=== PATIENT | female | born 1950 | race Caucasian/White ===

== ENCOUNTER → 2022-02-07 | Outpatient (CLI) | payer MEDICARE ==
--- NOTE | 2022-02-07 18:07 | MR ---
EXAMINATION TYPE: MR shoulder RT wo con DATE OF EXAM: 02/07/2022 COMPARISON: Outside right shoulder x-ray January 30, 2022. HISTORY: Rt shoulder pain into arm around 2 months with difficulty raising arm overhead. TECHNIQUE: Multiplanar, multisequence imaging of the right shoulder is performed without contrast. FINDINGS: Rotator Cuff: Marked increased signal in the distal supraspinatus tendon and to lesser degree the dis manuel infraspinatus tendon. Fanning of fibers distal supraspinatus tendon. Subscapularis tendon has so me increased signal and surrounding fluid. Rotator cuff muscle bulk preserved. Acromioclavicular Joint: Moderate to severe spurring. Moderate capsular hypertrophy with joint fluid and adjacent surrounding edema. Subchondral cystic change in the distal clavicle and adjacent acromio n. Glenohumeral Joint: Moderate to large size joint effusion. No significant spurring. Subchondral cysti c change superior osseous glenoid. Moderate narrowing especially inferiorly is felt present. Labrum: Increased signal superior labrum consistent with tear. Biceps Tendon: The long head of biceps is parched along the inner aspect of the bicipital groove. The intracapsular portion not well seen. Bone marrow signal: A few tiny subchondral cysts in the humeral head. Other: No additional significant abnormality is appreciated. IMPRESSION: 1. Significant tendinopathy of the supraspinatus tendon. Mild tendinosis distal infraspinatus tendon. Tendinosis of the subscapularis tendon. 2. Subluxation or trapping long head of biceps tendon. 3. Moderate to severe degenerative changes as detailed above. Moderate to large sized glenohumeral dale int effusion is noted.
== END | disposition home or self-care (01) ==
LOC: RADMRIMAIN 07:51
PROVIDERS: ATTEND Orthopaedic Surgery
DX: M19.011 Primary osteoarthritis, right shoulder (principal); M67.813 Other specified disorders of tendon, right shoulder

== ENCOUNTER 2022-05-10 05:35 | Day surgery (SDC) | payer MEDICARE ==
--- NOTE | 2022-05-09 19:49 | HP ---
HISTORY AND PHYSICAL DATE OF SURGERY: 05/10/2022 HISTORY OF PRESENT ILLNESS: Fe Sahu is a 71-year-old patient seen with progressive right shoulder pain. We discussed options regarding treatment, she elected to proceed with right shoulder arthroscopy. Consent was obtained. Medical clearance was provided by Dr. Back. PAST MEDICAL HISTORY: Atrial fibrillation, hypertension. PAST SURGICAL HISTORY: Tonsillectomy, herniorrhaphy, hysterectomy, cardiac ablation, lithotripsy. DAILY MEDICATIONS: 1. Metoprolol. 2. Xarelto. ALLERGIES: None. SOCIAL HISTORY: She denies tobacco use. PHYSICAL EVALUATION OF THE RIGHT SHOULDER: Flexion is 140 degrees, abduction 120 degrees, external rotation 70 degrees with weakness. Tenderness along the anterolateral acromion and rotator cuff insertion. Impingement is positive at 90 degrees. Drop-arm sign is positive. Distal neurovascular exam is intact. RADIOGRAPHS: Radiographs of the right shoulder revealed osteoarthritic change about the acromioclavicular joint. Significant tendinosis and subluxation of the biceps tendon. IMPRESSION: 1. Right shoulder impingement with rotator cuff tendinitis and possible tear. 2. Right shoulder acromioclavicular joint osteoarthritis. 3. Right shoulder labral tear. 4. Hypertension. 5. Atrial fibrillation. PLAN: Right shoulder arthroscopy, subacromial decompression, Bud procedure, biceps tenotomy, possible rotator cuff repair. MMODL / IJN: [id number] /
[~2022-05-10 05:35] MED LIST: ceFAZolin 3 GM in SODIUM CHLORIDE 0.9% 100 ML IVPB PRN
[2022-05-10] MEDS ORDERED: MIDAZOLAM 2 MG/2 ML VIAL IV PRN (06:13)
[2022-05-10] MEDS ORDERED: LACTATED RINGERS 1,000 ML IV SCH (06:13)
[2022-05-10] MEDS ORDERED: ONDANSETRON 4 MG/2 ML VIAL IVP ONE (06:13)
[2022-05-10] MEDS ORDERED: DEXAMETHASONE SOD PHOSPHATE 4 MG/ML 1 ML VIAL IV ONE (06:13)
[2022-05-10] MEDS ORDERED: HYDROmorphone 0.5 MG/0.5 ML SYRINGE IVP PRN (07:00)
[2022-05-10] MEDS ORDERED: MIDAZOLAM 2 MG/2 ML VIAL ONE (07:25)
[2022-05-10] MEDS ORDERED: PROPOFOL 10 MG/ML 20 ML VIAL IV ONE (07:25)
[2022-05-10] MEDS ORDERED: SUCCINYLCHOLINE CHLORIDE 200 MG/10 ML VIAL IV ONE (07:25)
[2022-05-10] MEDS ORDERED: WATER FOR INJECTION, STERILE 10 ML VIAL IV ONE (07:25)
[2022-05-10] MEDS ORDERED: LIDOCAINE 2% INJ 20 MG/ML (2 ML VIAL) ONE (07:25)
[2022-05-10] MEDS ORDERED: ePHEDrine 50 MG/ML 1 ML VIAL ONE (07:25)
[2022-05-10] MEDS ORDERED: DEXAMETHASONE SOD PHOSPHATE 4 MG/ML 1 ML VIAL ONE (07:25)
[2022-05-10] MEDS ORDERED: fentaNYL (PF) 50 MCG/ML 2 ML AMP ONE (07:25)
[2022-05-10] MEDS ORDERED: ROPIVACAINE 5 MG/ML 30 ML VIAL ONE (07:25)
--- NOTE | 2022-05-10 08:01 | P.ANPRN ---
Procedure Note - Anesthesia - Nerve Block Performed Right Interscalene Single Time Out Performed: Yes Date of Procedure: 05/10/22 Procedure Start Time: 07:05 Procedure Stop Time: 07:10 Location of Patient: PreOp Indication: Acute Post-Operative Pain, Requested by Surgeon Sedation Type: Sedate with meaningful contact maintained Preparation: Sterile Prep, Sterile Dressing Position: Sitting Catheter: None Needle Types: Facet Needle Gauge: 21 Ultrasound used to visualize needle placement: Yes Ultrasound used to observe medication spread: Yes Injectate: 0.5% Ropivacaine (see comment for volume) (20 ml + decadron 4 mg) Blood Aspirated: No Pain Paresthesia on Injection Noted: No Resistance on Injection: Normal Image Stored and Saved: Yes Events: Uneventful and Well Tolerated
[2022-05-10] MEDS ORDERED: LACTATED RINGERS 1,000 ML IV ONE (09:06)
--- NOTE | 2022-05-10 09:15 | P.OP ---
Date of Procedure: 05/10/22 Preoperative Diagnosis: Right shoulder impingement Postoperative Diagnosis: 1. Right shoulder rotator cuff tear 2. Right shoulder impingement Procedure(s) Performed: 1. Right shoulder arthroscopic rotator cuff repair 2. Right shoulder arthroscopic subacromial decompression Implants: 34.75 Arthrex swivel lock anchors 15.5 Arthrex swivel lock anchor Anesthesia: GETA, regional (Interscalene block) Surgeon: Ton Narvaez Band Ripsaw Operator #1: Huber Resendez Estimated Blood Loss (ml): 10 Pathology: none sent Condition: stable Disposition: PACU Indications for Procedure: 71-year-old patient seen with progressive right shoulder pain. After treatment options were discussed, she elected to proceed with arthroscopy. Operative Findings: See description of procedure Description of Procedure: Patient underwent an interscalene block by department of anesthesia. The patient was then taken to the operative suite. The patient underwent a general anesthetic by the department of anesthesia. The patient was placed into a lateral position and secured. There was appropriate padding of the bony prominence. Right shoulder was then prepped and draped in normal sterile orthopedic fashion. We placed the extremity in 10 pounds of longitudinal traction. A posterior incision was now made for a posterior working portal site. The trocar and cannula were inserted into the glenohumeral joint. Arthroscopy was initiated. Spinal needle was now inserted anteriorly, to ascertain the anterior working portal site. An incision was now made in that area, a trocar was inserted followed by a probe. There was some superficial tearing of the superior and anterior labrum. There were grade 2 chondromalacia changes about the glenohumeral joint without osteochondral tears. The biceps tendon was absent. I debrided out the superficial labral tears. The residual labrum was stable. At this point instruments were removed from the glenohumeral joint. Utilizing the posterior working portal site, the trocar and cannula were inserted into the subacromial space. Arthroscopy initiated. I made an incision 2 fingerbreadths lateral to the acromion. I introduced my trocar followed by my [employer] ablator. I now began ablating thick subacromial bursal tissue, which exposed the undersurface of the anterior acromion. There was diminished subacromial space. There was a very prominent anterior acromion. A motorized bur was introduced and a subacromial decompression was performed. I also excised some osteophytes off the inferior aspect of the distal clavicle. The AC joint wa s visualized and noted to be moderately arthritic, I did not think enough to warrant Bud procedure.. I turned my attention to the rotator cuff. There was a 3.5 cm rotator cuff tear. I debrided the margins getting down to stable tendon tissue. I introduced my motorized bur and abraded the footprint area, getting some petechial bleeding. I now made an accessory portal site off the lateral aspect of the acromion. I punched 2 holes medial for medial row fixation with the assistance of Juan Carlos BECERRIL carefully tapping the punch with a mallet as I held the punch and the camera. I now introduced both anchors into the pre- punched holes and Juan Carlos BECERRIL tapped them with the mallet as I held anchors and the camera. Juan Carlos BECERRIL now screwed the anchors in place a while I held the anchor guide and camera. All 8 limbs of suture were now passed through good bites of rotator cuff tendon. I now punched 2 holes for lateral row fixation again I held the punch and camera while Juan Carlos BECERRIL used a mallet to tap in the punch. We now passed sutures through both anchors and individually I introduced the anchors into the pre-punch holes I held the anchor guide in position with one hand holding the camera with the other hand while Juan Carlos BECERRIL tensioned the sutures and screwed in the anchors one at a time. All residual suture limbs were now clipped. We had good compression of the tendon along the entire footprint. Instruments now removed from the portal sites. All portal sites were approximated with nylon suture. Sterile dressings were applied followed by a shoulder immobilizer. Huber BECERRIL assisted in this complex case. The patient was awakened, transferred to a bed, and taken to recovery in stable condition.
[2022-05-10 09:25] VITALS: TEMP 96.8
[2022-05-10 10:56] VITALS: RESP 20
[2022-05-10 11:54] VITALS: BP 146/84; PULSE 58
== END 2022-05-10 12:15 | disposition home or self-care (01) ==
LOC: OR 05:35
PROVIDERS: ATTEND Orthopaedic Surgery
DX: M75.41 Impingement syndrome of right shoulder (principal); M75.101 Unspecified rotator cuff tear or rupture of right shoulder, not specified as traumatic; G89.18 Other acute postprocedural pain; I48.91 Unspecified atrial fibrillation; I10 Essential (primary) hypertension; Z90.89 Acquired absence of other organs; Z90.710 Acquired absence of both cervix and uterus; Z98.890 Other specified postprocedural states; Z79.01 Long term (current) use of anticoagulants; Z79.899 Other long term (current) drug therapy
CPT/HCPCS: 64415; 76942; 29827; 29826; C1713 ×2; J2250; J0330; J1100; J0690; J2405; J3010; J2795; J2704; J1170; J2001